=== PATIENT | female | born 1965 | race Caucasian/White ===

== ENCOUNTER → 2024-02-28 11:10 | Outpatient (CLI) | payer OTHER, SELFPAY ==
[2024-02-28 19:52] LABS: Hematocrit 40.3 % (36-46); Hemoglobin 13.7 g/dL (12.0-16.0); Mean Corpuscular Hemoglobin 31.2 PG (26-34); Mean Corpuscular Volume 91.7 fL (80-100); Platelet Count 208 X10^3/uL (150-400); Red Cell Distribution Width 14.2 % (11.6-14.8); White Blood Cell Count 6.2 X10^3/uL (4.5-11.0)
[2024-02-28 20:17] LABS: Free T3, Triiodothyronine Free 3.69 pg/mL (2.77-5.27)
[2024-02-28 20:26] LABS: Erythrocyte Sedimentation Rate 25 MM/HR (0-20)
[2024-02-28 20:30] LABS: TSH w/ Reflex to FT4 1.19 uIU/mL (0.47-4.68)
[2024-02-28 20:32] LABS: Neutrophils Absolute Manual 3906 /uL (3000-5900); Total Cells Counted 100
[2024-02-28 20:34] LABS: RBC Morphology Normal Morphology
[2024-02-29 13:22] LABS: Monotest Negative (Negative)
== END ==
PROVIDERS: PCP Physician Assistant; Visit Provider Physician Assistant
DX: R22.1 Localized swelling, mass and lump, neck (principal)
CPT/HCPCS: 84443; 84481; 85025; 85651; 86318; 87070